=== PATIENT | female | born 1950 | race African-American/Black ===

== ENCOUNTER 2021-03-09 11:44 | Emergency (ER) | payer OTHER ==
[~2021-03-09] VITALS: Ht 177.8 cm; Wt 113.4 kg
[2021-03-09 11:48] VITALS: BP 180/99
[2021-03-09 13:42] VITALS: BP 180/99
== END 2021-03-09 13:43 | disposition home or self-care (01) ==
LOC: MED 11:44
DX: S80.12XA Contusion of left lower leg, initial encounter (principal); I10 Essential (primary) hypertension; W19.XXXA Unspecified fall, initial encounter; Y93.89 Activity, other specified; Y92.89 Other specified places as the place of occurrence of the external cause; Y99.8 Other external cause status
CPT/HCPCS: 73562; 99283